=== PATIENT | male | born 1955 | race African-American/Black ===

== ENCOUNTER 2019-10-22 18:34 | Inpatient (IN) | payer OTHER ==
[~2019-10-22] VITALS: Ht 182.9 cm; Wt 69.9 kg
--- NOTE | 2019-10-22 18:45 | NUR ---
ED Nurse Note: PAtient came into ER with a c/o foot pain and chest pain. Patient refuses to get IV. Patient is aaox4, on room air with stable vital signs.
--- NOTE | 2019-10-22 19:00 | NUR ---
ED Nurse Note: Patient refuses to let me assess him .
--- NOTE | 2019-10-22 19:15 | NUR ---
ED Nurse Note: Report received from SAPNA Barrera. Pt is aaox4, breathing is normal and unlabored, speaking in full sentences. Pt being uncooperative and refusing assessment at this time.
--- NOTE | 2019-10-22 19:38 | NUR ---
ED Nurse Note: Pt acting uncooperative with treatment plan. Pt is refusing IV line and further treatment at this time. jewellery designer at bedside, pt is using unappropriate language stating "you are not fsweetie touching me".
--- NOTE | 2019-10-22 19:50 | Diagnostic Imaging Report ---
History: CP Exam: XR CXR 1 VIEW Comparison: None available FINDINGS: The lungs are clear. The cardiac and mediastinal contours are within limits. Right acromioclavicular joint osteoarthrosis IMPRESSION: No evidence of acute disease.
--- NOTE | 2019-10-22 19:50 | Emergency Room Report ---
History of Present Illness General Chief Complaint: Chest Pain Present Illness HPI 64-year-old male presents to emergency room with chest pain substernal nonradiating 7 out of 10 in severity initially now 5 out of 10. Associated with near syncopal episode and right leg pain. 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 He used to be followed in [facility] but has not been following at [facility]. He denies any difficulty breathing, nausea, diaphoresis, abdominal pain. Allergies: Coded Allergies: ACETAMINOPHEN (Unverified Allergy, Unknown, 10/22/19) HYDROCODONE (Unverified Allergy, Unknown, 10/22/19) IBUPROFEN (Unverified Allergy, Unknown, 10/22/19) KETOROLAC (Unverified Allergy, Unknown, 10/22/19) NALBUPHINE (Unverified Allergy, Unknown, 10/22/19) PENTAZOCINE (Unverified Allergy, Unknown, 10/22/19) PROPOXYPHENE (Unverified Allergy, Unknown, 10/22/19) PROPRANOLOL (Unverified Allergy, Unknown, 10/22/19) Review of Systems Constitutional: Denies: chills, fever Respiratory: Reports: shortness of breath; Denies: cough Cardiovascular: Reports: chest pain, syncope; Denies: palpitations Gastrointestinal: Denies: abdominal pain, diarrhea, vomiting Genitourinary: Denies: hematuria, pain Musculoskeletal: Denies: joint swelling Skin: Denies: rash, lesions Neurological: Denies: headache, dizziness Physical Exam Vital Signs Date Time Temp Pulse Resp B/P (MAP) Pulse Ox O2 Delivery O2 Flow Rate FiO2 10/22/19 18:27 98.2 98 16 114/74 (87) 98 Room Air Sp02 EP Interpretation: reviewed General Appearance: well appearing, no apparent distress, non-toxic Head: normocephalic, atraumatic Eyes: bilateral eye normal inspection ENT: hearing grossly normal, EOM grossly intact, moist mucus membranes Neck: supple Respiratory: lungs clear, normal breath sounds, no respiratory distress, speaking full sentences Cardiovascular #1: regular rate, rhythm, no edema, no gallop, normal capillary refill Cardiovascular #2: 2+ radial (R), 2+ radial (L) Gastrointestinal: soft, non-distended Rectal: deferred Musculoskeletal: moves extm spontaneously, swelling - Right lower extremity mild 2+ nonpitting edema, other - 2 cm superficial ulceration to medial left foot,, well-healed surgical scars in left upper extremity Neurologic: grossly normal Psychiatric: mood/affect normal Skin: warm/dry, normal turgor Medical Decision Making Diagnostic Impression: Primary Impression: Chest pain ER Course 64-year-old male presents to emergency room with chest pain substernal nonradiating 7 out of 10 in severity initially now 5 out of 10. Associated with near syncopal episode and right leg pain. 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 He used to be followed in [facility] but has not been following at [facility]. He denies any difficulty breathing, nausea, diaphoresis, abdominal pain. We will perform laboratory testing and cardiac work-up including EKG and chest x -ray. Laboratory Tests Test 10/22/19 19:30 10/22/19 20:30 10/23/19 06:52 Urine Color Pale yellow Urine Appearance Clear Urine pH 7 (4.5-8.0) Urine Specific Era 1.005 (1.005-1.035) Urine Protein Negative (NEGATIVE) Urine Glucose (UA) Negative (NEGATIVE) Urine Ketones Negative (NEGATIVE) Urine Blood Negative (NEGATIVE) Urine Nitrite Negative (NEGATIVE) Urine Bilirubin Negative (NEGATIVE) Urine Urobilinogen Normal MG/DL (0.0-1.0) Urine Leukocyte Esterase Negative (NEGATIVE) Urine Opiates Screen Negative (NEGATIVE) Urine Barbiturates Screen Negative (NEGATIVE) Phencyclidine (PCP) Screen Negative (NEGATIVE) Urine Amphetamines Screen Negative (NEGATIVE) Urine Benzodiazepines Screen Negative (NEGATIVE) Urine Cocaine Screen Negative (NEGATIVE) Urine Marijuana (THC) Screen Negative (NEGATIVE) White Blood Count 5.7 K/UL (4.8-10.8) 5.7 K/UL (4.8-10.8) Red Blood Count 4.32 M/UL (4.70-6.10) L 4.21 M/UL (4.70-6.10) L Hemoglobin 13.7 G/DL (14.2-18.0) L 13.5 G/DL (14.2-18.0) L Hematocrit 40.1 % (42.0-52.0) L 38.9 % (42.0-52.0) L Mean Corpuscular Volume 93 FL (80-99) 92 FL (80-99) Mean Corpuscular Hemoglobin 31.6 PG (27.0-31.0) H 32.0 PG (27.0-31.0) H Mean Corpuscular Hemoglobin Concent 34.1 G/DL (32.0-36.0) 34.7 G/DL (32.0-36.0) Red Cell Distribution Width 11.4 % (11.6-14.8) L 11.0 % (11.6-14.8) L Platelet Count 171 K/UL (150-450) 171 K/UL (150-450) Mean Platelet Volume 5.7 FL (6.5-10.1) L 6.4 FL (6.5-10.1) L Neutrophils (%) (Auto) 46.3 % (45.0-75.0) 47.3 % (45.0-75.0) Lymphocytes (%) (Auto) 43.2 % (20.0-45.0) 42.7 % (20.0-45.0) Monocytes (%) (Auto) 8.4 % (1.0-10.0) 8.2 % (1.0-10.0) Eosinophils (%) (Auto) 0.6 % (0.0-3.0) 0.8 % (0.0-3.0) Basophils (%) (Auto) 1.5 % (0.0-2.0) 1.0 % (0.0-2.0) Sodium Level 134 MMOL/L (136-145) L 134 MMOL/L (136-145) L Potassium Level 4.6 MMOL/L (3.5-5.1) 5.1 MMOL/L (3.5-5.1) Chloride Level 98 MMOL/L (98-107) 97 MMOL/L (98-107) L Carbon Dioxide Level 24 MMOL/L (21-32) 16 MMOL/L (21-32) L Anion Gap 12 mmol/L (5-15) 22 mmol/L (5-15) H Blood Urea Nitrogen 12 mg/dL (7-18) 12 mg/dL (7-18) Creatinine 0.8 MG/DL (0.55-1.30) 0.9 MG/DL (0.55-1.30) Estimate Glomerular Filtration Rate > 60 mL/min (>60) > 60 mL/min (>60) Glucose Level 136 MG/DL (74-106) H 128 MG/DL (74-106) H Calcium Level 8.7 MG/DL (8.5-10.1) 8.6 MG/DL (8.5-10.1) Total Bilirubin 0.5 MG/DL (0.2-1.0) 0.6 MG/DL (0.2-1.0) Aspartate Amino Transferase (AST) 98 U/L (15-37) H 113 U/L (15-37) H Alanine Aminotransferase (ALT) 41 U/L (12-78) 44 U/L (12-78) Alkaline Phosphatase 130 U/L (46-116) H 127 U/L (46-116) H Creatine Kinase MB 4.5 NG/ML (0.0-3.6) H Troponin I 0.012 ng/mL (0.000-0.056) 0.000 ng/mL (0.000-0.056) Pro-B-Type Natriuretic Peptide 59 pg/mL (0-125) Total Protein 8.2 G/DL (6.4-8.2) 8.3 G/DL (6.4-8.2) H Albumin 3.3 G/DL (3.4-5.0) L 3.3 G/DL (3.4-5.0) L Globulin 4.9 g/dL 5.0 g/dL Albumin/Globulin Ratio 0.7 (1.0-2.7) L 0.7 (1.0-2.7) L Lab Results Impression CBC mild elevation in hemoglobin, chemistry mild elevation in alk phos, CK-MB, initial troponin 0.012, UDS negative, UA negative Last Vital Signs Date Time Temp Pulse Resp B/P (MAP) Pulse Ox O2 Delivery O2 Flow Rate FiO2 10/22/19 18:27 98.2 98 16 114/74 (87) 98 Room Air Reevaluation Impression Patient's care discussed with Dr. Ibarra. Pt accepted to telemetry floor for further work up of chest pain Disposition: ADMITTED INPATIENT Condition: Jayy Feliciano M.D. Oct 22, 2019 19:50
--- NOTE | 2019-10-22 20:15 | NUR ---
ED Nurse Note: Pt now agreed to IV placement and care plan.
[2019-10-22 20:26] LABS: APPEARANCE,URINE CLEAR; BILIRUBIN, URINE NEGATIVE (NEGATIVE); COLOR,URINE PALE YELLOW; GLUCOSE, URINE (UA) NEGATIVE (NEGATIVE); KETONES,URINE NEGATIVE (NEGATIVE); LEUKOCYTE ESTERASE ,URINE NEGATIVE (NEGATIVE); NITRITE,URINE NEGATIVE (NEGATIVE); PH,URINE 7 (4.5-8.0); PROTEIN,URINE NEGATIVE (NEGATIVE); UROBILINOGEN,URINE NORMAL MG/DL (0.0-1.0)
[2019-10-22 20:30] VITALS: BP 114/74
--- NOTE | 2019-10-22 20:31 | Diagnostic Imaging Report ---
EXAM: US Duplex Right Lower Extremity Veins CLINICAL HISTORY: SWELL TECHNIQUE: Real-time duplex ultrasound scan of the right lower extremity veins integrating B-mode two-dimensional vascular structure, Doppler spectral analysis, color flow Doppler imaging and compression. COMPARISON: No relevant prior studies available. FINDINGS: Deep veins: Unremarkable as visualized. Normal compression and normal response to augmentation. Superficial veins: Unremarkable as visualized. Soft tissues: 4.4 cm popliteal cyst. IMPRESSION: No right lower extremity DVT.
[2019-10-22 21:03] LABS: BASOPHILS % (AUTO) 1.5 % (0.0-2.0); EOSINOPHILS % (AUTO) 0.6 % (0.0-3.0); HEMATOCRIT 40.1 % (42.0-52.0); HEMOGLOBIN 13.7 G/DL (14.2-18.0); LYMPHOCYTES % (AUTO) 43.2 % (20.0-45.0); MEAN CORPUSCULAR VOLUME 93 FL (80-99); MONOCYTES % (AUTO) 8.4 % (1.0-10.0); NEUTROPHILS % (AUTO) 46.3 % (45.0-75.0); PLATELET COUNT 171 K/UL (150-450); RED BLOOD COUNT 4.32 M/UL (4.70-6.10); RED CELL DISTRIBUTION WIDTH 11.4 % (11.6-14.8); WHITE BLOOD COUNT 5.7 K/UL (4.8-10.8)
[2019-10-22 21:05] LABS: ANION GAP 12 mmol/L (5-15); BLOOD UREA NITROGEN 12 mg/dL (7-18); CALCIUM 8.7 MG/DL (8.5-10.1); CARBON DIOXIDE 24 MMOL/L (21-32); CHLORIDE 98 MMOL/L (98-107); CREATININE 0.8 MG/DL (0.55-1.30); POTASSIUM 4.6 MMOL/L (3.5-5.1); SODIUM 134 MMOL/L (136-145)
[2019-10-22 21:18] LABS: ALANINE AMINOTRANSFERASE 41 U/L (12-78); ALBUMIN 3.3 G/DL (3.4-5.0); ALBUMIN/GLOBULIN RATIO 0.7 (1.0-2.7); ALKALINE PHOSPHATASE 130 U/L (46-116); ASPARTATE AMINO TRANSFERASE 98 U/L (15-37); BILIRUBIN,TOTAL 0.5 MG/DL (0.2-1.0); CKMB 4.5 NG/ML (0.0-3.6)
--- NOTE | 2019-10-22 21:45 | NUR ---
ED Nurse Note: Report given to SAPNA Burroughs.
--- NOTE | 2019-10-22 21:46 | NUR ---
NURSE NOTES: Received report on pt from Ashlee Ngo RN. Pt transported via gurney. Pt is aox3 and ambulated to bed with assistance. Pt appears to be intoxicated, pt confessed to drinking gin. Iv site intact. health education assistant assembled on patient, vitals taken. Bed locked in lowest position, side rails x3, bed alarm on, call light within reach. Belongings verified at bedside. Will contact HCP for admission orders.
--- NOTE | 2019-10-22 23:00 | NUR ---
ED Nurse Note: Pt taken to tele floor by RN and tech via gurney. Pt is stable for transport to floor. Pt is resting on gurney, no acute distress noted. Pt vss as charted. All pt belongings taken with pt.
[2019-10-23] VITALS: BP 109/77
--- NOTE | 2019-10-23 06:19 | NUR ---
NURSE NOTES: Pt refused lab draw.
[2019-10-23 07:34] LABS: EOSINOPHILS % (AUTO) 0.8 % (0.0-3.0); HEMATOCRIT 38.9 % (42.0-52.0); HEMOGLOBIN 13.5 G/DL (14.2-18.0); LYMPHOCYTES % (AUTO) 42.7 % (20.0-45.0); MEAN CORPUSCULAR VOLUME 92 FL (80-99); MONOCYTES % (AUTO) 8.2 % (1.0-10.0); NEUTROPHILS % (AUTO) 47.3 % (45.0-75.0); PLATELET COUNT 171 K/UL (150-450); RED BLOOD COUNT 4.21 M/UL (4.70-6.10); WHITE BLOOD COUNT 5.7 K/UL (4.8-10.8)
--- NOTE | 2019-10-23 07:37 | NUR ---
HAND-OFF: Report given to SAPNA Holder. Endorsed plan of care.
[2019-10-23 08:16] VITALS: BP 114/64
[2019-10-23] MEDS ORDERED: Enoxaparin 40mg Inj SUBQ SCH (09:00)
[2019-10-23 09:26] LABS: ALANINE AMINOTRANSFERASE 44 U/L (12-78); ALBUMIN 3.3 G/DL (3.4-5.0); ALBUMIN/GLOBULIN RATIO 0.7 (1.0-2.7); ANION GAP 22 mmol/L (5-15); BILIRUBIN,TOTAL 0.6 MG/DL (0.2-1.0); BLOOD UREA NITROGEN 12 mg/dL (7-18); CALCIUM 8.6 MG/DL (8.5-10.1); CARBON DIOXIDE 16 MMOL/L (21-32); CHLORIDE 97 MMOL/L (98-107); CREATININE 0.9 MG/DL (0.55-1.30); POTASSIUM 5.1 MMOL/L (3.5-5.1); SODIUM 134 MMOL/L (136-145)
[2019-10-23 09:42] LABS: ALKALINE PHOSPHATASE 127 U/L (46-116)
[2019-10-23 09:51] LABS: ASPARTATE AMINO TRANSFERASE 113 U/L (15-37)
[2019-10-23 11:47] VITALS: BP 109/80
--- NOTE | 2019-10-23 12:45 | NUR ---
patient left AMA AT 1240 PM PATIENT NOTIFIED THE RISKS OF LEAVING AGAINST MEDICAL ADVISES.
--- NOTE | 2019-10-23 15:45 | History and Physical Report ---
DATE OF ADMISSION: 10/22/2019 DATE AND TIME SEEN: 10/23/2019 at 11 a.m. ATTENDING PHYSICIAN: Dr. Guerrero for Dr. Ibarra. CHIEF COMPLAINT: Chest pain, left lower extremity swelling. BRIEF HISTORY: This is a 64-year-old homeless man, presents to [facility] with above-mentioned diagnoses, admitted to telemetry for chest pain, ACS, lower extremity swelling. Currently slightly angry in bed. Complaining of pain all over. No complaint. REVIEW OF SYSTEMS: Slight chest pain. Slight short of breath. No nausea, vomiting, or diarrhea. PAST MEDICAL HISTORY: CVA, right-sided weakness, and swelling. PAST SURGICAL HISTORY: Pacemaker. ALLERGIES: Tylenol, hydrocodone, ibuprofen, ketorolac, pantoprazole, pentazocine, propoxyphene, propranolol. SOCIAL HISTORY: Positive smoking. Positive alcohol. No intravenous drug abuse. FAMILY HISTORY: Noncontributory. PHYSICAL EXAMINATION: GENERAL: Calm, slightly anxious in bed, oriented x2, in no acute distress. VITAL SIGNS: Temperature 98, pulse 89, respirations 16, blood pressure 109/80. CARDIOVASCULAR: No murmur. LUNGS: . ABDOMEN: Bowel sounds distant. Soft, nontender, nondistended. EXTREMITIES: No cyanosis, clubbing. 1+ edema bilaterally. NEUROLOGIC: The patient moves all extremities, slightly weak. LABORATORY DATA: Labs at this time show hemoglobin and hematocrit 13/38, otherwise CBC is normal. BMP shows sodium 134, chloride 97, CO2 16, glucose 128. Troponin 0.00. Albumin 3.3. Urinalysis negative. MEDICATIONS: Include , enoxaparin, and aspirin. ASSESSMENT: 1. Chest pain. 2. ACS. 3. Lower extremity swelling. 4. Malnutrition. 5. CVA. PLAN: 1. PT/OT, dietary followup. 2. Pain control. 3. Cardiology followup. Param Guerrero D.O. DR: NOLVIA JOB#: [id number] CC:
--- NOTE | 2019-10-25 12:13 | Discharge Summary ---
Discharge Summary Discharge Summary _ DATE OF ADMISSION: 10/22/2019 DATE OF DISCHARGE: 10/23/2019 Patient left AGAINST MEDICAL ADVICE REASON FOR ADMISSION: 64 years old male with past medical history of coronary artery disease and MT / years ago, sick sinus syndrome with multiple infected pacemaker that have to be removed, presented to emergency department complaining of chest pain located substernally, nonradiating, 7 out of 10 , associated with the right leg pain and near syncopal episode. 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 He denied difficulty breathing diaphoresis, nausea, or abdominal pain. Upon evaluation vital signs were stable. Pulse oximetry was stable on room air. Laboratory work-up revealed troponin 0.012. pro BNP 69. Slightly elevated CK -MB 4.5 Urine toxicology screen was negative. No leukocytosis, stable hemoglobin and hematocrit. Stable electrolytes and renal parameters. Glucose 136. Urinalysis revealed no evidence of urinary tract infection. Patient admitted to telemetry floor for further management. HOSPITAL COURSE: Patient admitted to telemetry floor. Telemetry showed sinus rhythm. Cardiology consult was requested. Repeated troponin was negative. Patient received aspirin and started on daily prophylaxis with Lovenox. Venous duplex bilateral lower extremity revealed no evidence of acute DVT. Chest x-ray revealed no acute cardiopulmonary pathology. Shortly after arriving on the floor, patient decided to leave AGAINST MEDICAL ADVICE. The risks and consequences of signing AGAINST MEDICAL ADVICE were discussed with patient in detail. Patient verbalized understanding, nevertheless signed AMA form and left. FINAL DIAGNOSES: Chest pain Possible acute coronary syndrome Malnutrition History of coronary artery disease and MT I have been assigned to dictate discharge summary for this account. I was not involved in the patient's management. Crystal Otto NP Oct 25, 2019 12:13
--- NOTE | 2019-10-25 13:19 | NUR ---
*-* INSURANCE *-* ALL CLINICALS HAVE BEEN FAXED TO: #[phone] fax#[phone]
== END 2019-10-23 12:40 | disposition left against medical advice (07) | DRG 311 ==
LOC: EDBD 18:34 → EMR 19:00 → 2E 20:07 → EDBEDREQ 20:45 → 2E 23:37
DX: I24.9 Acute ischemic heart disease, unspecified (principal); E46 Unspecified protein-calorie malnutrition; I69.351 Hemiplegia and hemiparesis following cerebral infarction affecting right dominant side; I25.10 Atherosclerotic heart disease of native coronary artery without angina pectoris; I25.2 Old myocardial infarction; Z59.0 Homelessness; Z88.6 Allergy status to analgesic agent; Z88.8 Allergy status to other drugs, medicaments and biological substances
CPT/HCPCS: 36415; 71045; 80053; 80307; 81003; 82553; 83880; 84484; 85025; 87081; 93005; 93971; 99285

== ENCOUNTER 2019-11-05 09:20 | Emergency (ER) | payer OTHER ==
[~2019-11-05] VITALS: Ht 177.8 cm; Wt 72.6 kg
[2019-11-05] MEDS ORDERED: ASPIRIN81 MG ORAL (09:27)
[2019-11-05 09:53] VITALS: BP 99/73
[2019-11-05 10:09] LABS: BASOPHILS % (AUTO) 1.6 % (0.0-2.0); EOSINOPHILS % (AUTO) 0.4 % (0.0-3.0); HEMATOCRIT 37.2 % (42.0-52.0); HEMOGLOBIN 12.2 G/DL (14.2-18.0); LYMPHOCYTES % (AUTO) 35.7 % (20.0-45.0); MEAN CORPUSCULAR VOLUME 96 FL (80-99); MONOCYTES % (AUTO) 6.4 % (1.0-10.0); PLATELET COUNT 291 K/UL (150-450); RED BLOOD COUNT 3.87 M/UL (4.70-6.10); RED CELL DISTRIBUTION WIDTH 11.2 % (11.6-14.8); WHITE BLOOD COUNT 4.6 K/UL (4.8-10.8)
[2019-11-05 10:28] LABS: ANION GAP 9 mmol/L (5-15); BLOOD UREA NITROGEN 18 mg/dL (7-18); CALCIUM 8.6 MG/DL (8.5-10.1); CARBON DIOXIDE 28 MMOL/L (21-32); CHLORIDE 105 MMOL/L (98-107); CREATININE 0.8 MG/DL (0.55-1.30); POTASSIUM 4.3 MMOL/L (3.5-5.1); SODIUM 142 MMOL/L (136-145)
[2019-11-05 10:38] LABS: ALANINE AMINOTRANSFERASE 53 U/L (12-78); ALBUMIN 3.2 G/DL (3.4-5.0); ALBUMIN/GLOBULIN RATIO 0.6 (1.0-2.7); ALKALINE PHOSPHATASE 97 U/L (46-116); ASPARTATE AMINO TRANSFERASE 91 U/L (15-37); BILIRUBIN,TOTAL 0.1 MG/DL (0.2-1.0)
--- NOTE | 2019-11-05 11:51 | Diagnostic Imaging Report ---
Indication: Cough Technique: One view of the chest Comparison: 10/22/2019 Findings: Lungs and pleural spaces are clear. Heart size is normal. No significant change Impression: No acute process This agrees with the preliminary interpretation provided by the emergency room physician
--- NOTE | 2019-11-05 12:40 | Emergency Room Report ---
History of Present Illness General Chief Complaint: Chest Pain Source: Patient, EMS Present Illness HPI Patient has a history of pacemaker sick sinus syndrome and prior history of NE. This was all diagnosed in [place] where he was previously. Patient has been fainting per his report. Patient has had a prior admission on [facility] here where he signed out AMA and did not receive his work-up. He denies any fever nausea vomiting diarrhea chills. But complains diffuse body ache chest pain and shortness of breath. Patient apparently was slightly intoxicated found outside of a [employer] and then brought here for further evaluation. Patient denies any leg pain leg swelling. Initially patient was not very cooperative but as he became more sober was more cooperative. He states that he does want treatment and he does not want to leave AMA at this time. No other complaints are noted. Symptoms noted to be severe. No other modifying factors. No other associated signs and symptoms. No other complaints were noted. Allergies: Coded Allergies: ACETAMINOPHEN (Unverified Allergy, Unknown, 10/22/19) HYDROCODONE (Unverified Allergy, Unknown, 10/22/19) IBUPROFEN (Unverified Allergy, Unknown, 10/22/19) KETOROLAC (Unverified Allergy, Unknown, 10/22/19) NALBUPHINE (Unverified Allergy, Unknown, 10/22/19) PENTAZOCINE (Unverified Allergy, Unknown, 10/22/19) PROPOXYPHENE (Unverified Allergy, Unknown, 10/22/19) PROPRANOLOL (Unverified Allergy, Unknown, 10/22/19) Patient History PMH Narrative Sick sinus syndrome, pacemaker, NE, acute coronary syndrome Past Surgical History: none Pertinent Family History: none Social History: Reports: alcohol use Reviewed Nursing Documentation: PMH: Agreed; PSxH: Agreed Nursing Documentation-PMH Past Medical History: No History, Except For Hx Cardiac Problems: Yes - HEART ATTACK Review of Systems All Other Systems: negative except mentioned in HPI Physical Exam Vital Signs Date Time Temp Pulse Resp B/P (MAP) Pulse Ox O2 Delivery O2 Flow Rate FiO2 11/05/19 09:14 98.2 90 18 148/92 (110) 100 Room Air Sp02 EP Interpretation: reviewed, normal General Appearance: no apparent distress, alert, other - Disruptive slightly intoxicated. Head: atraumatic Eyes: bilateral eye normal inspection ENT: normal ENT inspection, hearing grossly normal, normal voice Neck: normal inspection, full range of motion, supple, no bony tend Respiratory: normal inspection, lungs clear, normal breath sounds, no respiratory distress, no retraction, no wheezing Cardiovascular #1: regular rate, rhythm, no edema Gastrointestinal: normal inspection, normal bowel sounds, non tender, soft, no guarding, no hernia Genitourinary: no CVA tenderness Musculoskeletal: normal inspection, back normal, normal range of motion Neurologic: alert, responsive, speech normal, normal inspection Psychiatric: normal inspection, other - Increase insight, not cooperative Skin: no rash Medical Decision Making Diagnostic Impression: Primary Impression: ACS (acute coronary syndrome) ER Course Patient presented to the emergency department today complaining of chest pain. Differential diagnoses include acute coronary syndrome, pulmonary embolism, pneumothorax, chest wall pain, pleurisy, pericarditis, acute anxiety reaction just to name a few. Given the severity of the patient's presentation I felt this is a highly complex patient. This patient required extensive workup. CBC , chemistry, EKG, chest x-ray, cardiac enzymes, liver profile were all obtained. 12-lead EKG performed for nontraumatic chest pain. PQRS documentation: EKG was performed. Please refer to below for interpretation. Patient's laboratory work-up was negative chest x-ray surprisingly did not show evidence of a pacemaker. Uncertain certain it was actually removed and the patient was providing false information. Patient's EKG was completely normal. But given patient's complaints of risk factors and history I feel is reasonable admit the patient. Patient is stable for transfer. Case was discussed with Dr. Morales at the the [place]. Patient will be stable for a ER to ER transfer. Labs Test 11/05/19 09:50 White Blood Count 4.6 K/UL (4.8-10.8) Red Blood Count 3.87 M/UL (4.70-6.10) Hemoglobin 12.2 G/DL (14.2-18.0) Hematocrit 37.2 % (42.0-52.0) Mean Corpuscular Volume 96 FL (80-99) Mean Corpuscular Hemoglobin 31.5 PG (27.0-31.0) Mean Corpuscular Hemoglobin Concent 32.8 G/DL (32.0-36.0) Red Cell Distribution Width 11.2 % (11.6-14.8) Platelet Count 291 K/UL (150-450) Mean Platelet Volume 5.8 FL (6.5-10.1) Neutrophils (%) (Auto) 56.0 % (45.0-75.0) Lymphocytes (%) (Auto) 35.7 % (20.0-45.0) Monocytes (%) (Auto) 6.4 % (1.0-10.0) Eosinophils (%) (Auto) 0.4 % (0.0-3.0) Basophils (%) (Auto) 1.6 % (0.0-2.0) Sodium Level 142 MMOL/L (136-145) Potassium Level 4.3 MMOL/L (3.5-5.1) Chloride Level 105 MMOL/L (98-107) Carbon Dioxide Level 28 MMOL/L (21-32) Anion Gap 9 mmol/L (5-15) Blood Urea Nitrogen 18 mg/dL (7-18) Creatinine 0.8 MG/DL (0.55-1.30) Estimat Glomerular Filtration Rate > 60 mL/min (>60) Glucose Level 95 MG/DL (74-106) Calcium Level 8.6 MG/DL (8.5-10.1) Total Bilirubin 0.1 MG/DL (0.2-1.0) Aspartate Amino Transf (AST/SGOT) 91 U/L (15-37) Alanine Aminotransferase (ALT/SGPT) 53 U/L (12-78) Alkaline Phosphatase 97 U/L (46-116) Troponin I 0.000 ng/mL (0.000-0.056) Pro-B-Type Natriuretic Peptide 57 pg/mL (0-125) Total Protein 8.4 G/DL (6.4-8.2) Albumin 3.2 G/DL (3.4-5.0) Globulin 5.2 g/dL Albumin/Globulin Ratio 0.6 (1.0-2.7) Lipase 88 U/L (73-393) Serum Alcohol 256 mg/dL EKG Diagnostic Results Rate: normal Rhythm: NSR ST Segments: no acute changes Rhythm Strip Diag. Results EP Interpretation: yes Rate: 73 Rhythm: NSR, no PVC's, no ectopy Chest X-Ray Diagnostic Results Chest X-Ray Diagnostic Results : Chest X-Ray Ordered: Yes # of Views/Limited/Complete: 1 View Indication: Chest Pain Interpretation: no consolidation, no effusion, no pneumothorax, no acute cardiopulmonary disease, other - No evidence of a pacemaker. Impression: No acute disease Electronically Signed by: Electronically signed by Shaun Jorge MD Last Vital Signs Date Time Temp Pulse Resp B/P (MAP) Pulse Ox O2 Delivery O2 Flow Rate FiO2 11/05/19 09:54 90 18 Room Air 11/05/19 09:53 98.2 99/73 99 Status: improved Disposition: XFER [facility] Condition: Serious Referrals: NOT CHOSEN IPA/,REFERRING (PCP) Shaun Jorge MD Nov 05, 2019 12:40
[2019-11-05 13:30] VITALS: BP 120/72
[2019-11-05] MEDS ORDERED: Morphine Sulfate 2mg/ml Inj(IV/IM USE ONLY) IVP ONE (14:00)
[2019-11-05 14:09] VITALS: BP 120/72
== END 2019-11-05 14:08 | disposition short-term general hospital (02) ==
LOC: EDBD 09:20 → EMR 09:50
DX: I24.9 Acute ischemic heart disease, unspecified (principal); Z88.6 Allergy status to analgesic agent; I25.2 Old myocardial infarction
CPT/HCPCS: 36415; 71045; 80053; 83690; 83880; 84484; 85025; 93005; 96374; 99285; G0480; J2270